=== PATIENT | male | born 1975 | race African-American/Black ===

== ENCOUNTER 2018-07-01 14:09 | Emergency (ER) | payer SELFPAY ==
[2018-07-01 14:44] VITALS: BP 99/64; PULSE 68; TEMP 98.6; BMI 22.8
--- NOTE | 2018-07-01 15:36 | PDOC ---
History of Present Illness - General Chief Complaint: Wound Stated Complaint: LT SIDE BOIL ON THE FACE Time Seen by Provider: 07/01/18 15:28 - History of Present Illness Initial Comments: 07/01/18 15:33 43-year-old male without comorbidities presents for evaluation of left-sided facial swelling times one month. He has no systemic symptoms. Past History - Past Medical History Allergies/Adverse Reactions: Allergies Allergy/AdvReac Type Severity Reaction Status Date / Time No Known Allergies Allergy Verified 07/01/18 14:41 Home Medications: Ambulatory Orders Cephalexin [Keflex] 500 mg PO QID #40 capsule 07/01/18 Sulfamethoxazole/Trimethoprim [Bactrim Ds -] 1 tab PO BID #14 tablet 07/01/18 COPD: No - Suicide/Smoking/Psychosocial Hx Smoking History: Unknown if ever smoked Review of Systems - Review of Systems Constitutional: No: Chills, Fever, Malaise, Night Sweats Integumentary: Yes: Erythema, Lesions, Lumps *Physical Exam - Vital Signs Last Vital Signs Temp Pulse Resp BP Pulse Ox 98.6 F 68 16 99/64 100 07/01/18 14:43 07/01/18 14:43 07/01/18 14:43 07/01/18 14:43 07/01/18 14:43 - Physical Exam Comments: 07/01/18 15:34 There is an indurated erythemic mildly warm area to the left side of the face just anterior to the angle of the mandible. On the skin overlying it. The mass is tender and firm, dry without drainage Medical Decision Making - Medical Decision Making 07/01/18 15:34 This is a folliculitis. I'll treat him with Bactrim and Keflex and have him follow-up with dermatology. *DC/Admit/Observation/Transfer Diagnosis at time of Disposition: Deep folliculitis - Discharge Dispostion Disposition: HOME Condition at time of disposition: Stable Decision to Admit order: No - Prescriptions Prescriptions: Cephalexin [Keflex] 500 mg PO QID #40 capsule Sulfamethoxazole/Trimethoprim [Bactrim Ds -] 1 tab PO BID #14 tablet - Referrals Referrals: Jacinta Aolnso MD [Staff Physician] - - Patient Instructions Additional Instructions: Warm compresses multiple times a day. Please take the antibiotics as directed. Return to the emergency room for worsening symptoms. Follow-up with dermatology in 1-2 days for further evaluation and treatment options. - Post Discharge Activity
== END 2018-07-01 16:44 | disposition home or self-care (01) ==
LOC: JERFT 14:09
DX: L02.02 Furuncle of face (principal); K12.2 Cellulitis and abscess of mouth
CPT/HCPCS: 99281-25

== ENCOUNTER 2022-05-23 15:03 | Emergency (ER) | payer SELFPAY ==
[2022-05-23 15:15] VITALS: BP 138/88; PULSE 87; RESP 20; TEMP 98.1; BMI 48.8
[2022-05-23] MEDS ORDERED: morphine CARPU-JECT 4 MG/1 ML DISP.SYRIN IVPUSH ONE (16:13)
[2022-05-23] MEDS ORDERED: KETOROLAC TROMETHAMINE 30 MG/1 ML VIAL IM ONE (16:24)
[2022-05-23] MEDS ORDERED: LIDOCAINE HCL 2% JELLY (30 ML/TUBE) TP ONE (16:25)
[2022-05-23] MEDS ORDERED: KETOROLAC TROMETHAMINE 30 MG/1 ML VIAL ONE (16:42)
== END 2022-05-23 18:19 | disposition home or self-care (01) ==
LOC: JER 15:03
PROC: 3E023GC Introduction of Other Therapeutic Substance into Muscle, Percutaneous Approach (ICD-10-PCS; principal; 2022-05-23)
DX: K64.9 Unspecified hemorrhoids (principal)
CPT/HCPCS: 99284-25

== ENCOUNTER 2022-05-26 10:07 | Observation (INO) | payer OTHER ==
[2022-05-26 10:13] VITALS: BMI 22.1
[2022-05-26] MEDS ORDERED: LIDOCAINE 2.5%/PRILOCAINE 2.5% (5 Gram/TUBE) TP ONE ×2 (11:20→11:25)
[2022-05-26] MEDS ORDERED: morphine CARPU-JECT 4 MG/1 ML DISP.SYRIN IVPUSH ONE (12:56)
[2022-05-26] MEDS ORDERED: morphine SULFATE 4 MG/ML VIAL ONE (13:17)
[2022-05-26 13:56] LABS: BASO % 0.5 % (0-2.0); EOS % 2.1 % (0-4.5); HEMATOCRIT 41.9 % (35.4-49); HEMOGLOBIN 13.8 GM/dL (11.7-16.9); LYMPH % 33.4 % (8-40); MCH 29.6 pg (25.7-33.7); MEAN CELL VOLUME 89.5 fl (80-96); MEAN PLT VOLUME 7.8 fl (7.5-11.1); MONO % 15.3 % (3.8-10.2); NEUT % 48.7 % (42.8-82.8); PLATELET COUNT 220 10^3/uL (134-434); RBC 4.68 M/mm3 (4.00-5.60); RDW 13.3 % (11.9-15.9); WHITE BLOOD COUNT 5.6 K/mm3 (4.0-10.0)
[2022-05-26 14:03] LABS: INR 1.06 (0.83-1.09); PROTHROMBIN TIME (PATIENT) 12.3 SEC (9.7-13.0)
[2022-05-26 14:06] LABS: ACTIVATED PTT 32.7 SECONDS (25.2-36.5)
[2022-05-26 14:22] LABS: CALCIUM 9.4 mg/dL (8.5-10.1)
[2022-05-26 14:23] LABS: ALBUMIN 3.9 g/dl (3.4-5.0)
[2022-05-26 14:26] LABS: CREATININE 1.2 mg/dL (0.55-1.3)
[2022-05-26 14:27] LABS: BILIRUBIN,TOTAL 0.5 mg/dL (0.2-1)
[2022-05-26] MEDS ORDERED: KETOROLAC TROMETHAMINE 15 MG/ML VIAL IVPUSH PRN (15:41)
[2022-05-26] MEDS ORDERED: LACTATED RINGERS SOLUTION 1,000 ML IV SCH ×3 (15:45→19:23)
[2022-05-26] MEDS ORDERED: SENNOSIDES 8.6MG TABLET (FP) PO PRN ×2 (15:53→19:23)
[2022-05-26] MEDS ORDERED: DOCUSATE SODIUM 100 MG CAPSULE (FP) PO PRN ×2 (15:53→19:23)
[2022-05-26] MEDS ORDERED: MIDAZOLAM HCL 2 MG/2 ML SINGLE DOSE VIAL ONE ×2 (16:42→18:08)
[2022-05-26] MEDS ORDERED: ONDANSETRON 4 MG/2 ML VIAL IVPUSH PRN ×2 (17:38→19:23)
[2022-05-26] MEDS ORDERED: PROMETHAZINE HCL 25 MG/1 ML VIAL IVPB PRN ×2 (17:38→19:23)
[2022-05-26] MEDS ORDERED: ACETAMINOPHEN 1000 MG/100 ML BAG IVPB ONE ×2 (17:38→19:23)
[2022-05-26] MEDS ORDERED: ceFAZolin SODIUM 1 GM VIAL IVPB ONE (17:40)
[2022-05-26] MEDS ORDERED: BENZOIN/ALOE VERA/STORAX/TOLU 58 ML BOTTLE ONE (17:42)
[2022-05-26] MEDS ORDERED: BUPIVACAINE HCL/PF 0.5% (5MG/ML) 10 ML VIAL ONE (17:43)
[2022-05-26] MEDS ORDERED: BUPIVACAINE HCL/PF 0.5% (5 MG/ML) 30 ML VIAL IJ ONE (18:45)
[2022-05-26] MEDS ORDERED: morphine CARPU-JECT 4 MG/1 ML DISP.SYRIN IVPUSH PRN (19:22)
[2022-05-26] MEDS ORDERED: ACETAMINOPHEN INJECTION 100 ML IVPB ONE (20:01)
[2022-05-26] MEDS ORDERED: GLYCOPYRROLATE 0.2 MG/1 ML VIAL ONE (20:45)
[2022-05-26] MEDS ORDERED: GLYCOPYRROLATE 0.2 MG/1 ML VIAL IVPB ONE (20:57)
[2022-05-26] MEDS ORDERED: GLYCOPYRROLATE 0.2 MG/1 ML VIAL IM PRN (21:27)
[2022-05-26] MEDS ORDERED: ACETAMINOPHEN 325 MG TABLET (FP) PO PRN (22:00)
[2022-05-26] MEDS: morphine SULFATE 4 MG/ML VIAL IVPUSH PRN (22:11)
[2022-05-27] MEDS: KETOROLAC TROMETHAMINE 15 MG/ML VIAL IVPUSH PRN ×2 (00:52→13:50)
[2022-05-27] MEDS: morphine SULFATE 4 MG/ML VIAL IVPUSH PRN ×3 (03:17→23:05)
[2022-05-27] MEDS ORDERED: morphine SULFATE 4 MG/ML VIAL IVPUSH PRN (03:43)
[2022-05-27] MEDS: ACETAMINOPHEN 325 MG TABLET (FP) PO PRN ×2 (05:03→11:18)
[2022-05-27] MEDS ORDERED: HYDROmorphone HCl 2 MG/ML VIAL IVPUSH ONE (05:26)
[2022-05-27 10:12] LABS: HEMATOCRIT 37.1 % (35.4-49); MCH 28.9 pg (25.7-33.7); MCHC 32.3 g/dl (32.0-35.9); MEAN CELL VOLUME 89.3 fl (80-96); MEAN PLT VOLUME 7.8 fl (7.5-11.1); PLATELET COUNT 196 10^3/uL (134-434); RBC 4.16 M/mm3 (4.00-5.60); RDW 13.4 % (11.9-15.9); WHITE BLOOD COUNT 7.5 K/mm3 (4.0-10.0)
[2022-05-27 10:48] LABS: CALCIUM 8.5 mg/dL (8.5-10.1)
[2022-05-27 10:49] LABS: BLOOD UREA NITROGEN 14.4 mg/dL (7-18)
[2022-05-27 10:50] VITALS: RESP 18
[2022-05-27 10:53] LABS: CREATININE 1.1 mg/dL (0.55-1.3)
[2022-05-27] MEDS: LACTATED RINGERS SOLUTION 1,000 ML IV SCH (13:17)
[2022-05-27] MEDS: KETOROLAC TROMETHAMINE 30 MG/1 ML VIAL IVPUSH PRN (20:37)
[2022-05-28] MEDS: LACTATED RINGERS SOLUTION 1,000 ML IV SCH (03:33)
[2022-05-28] MEDS: morphine SULFATE 4 MG/ML VIAL IVPUSH PRN (07:54)
[2022-05-28] MEDS: ENOXAPARIN NA (PORCINE) 40 MG/0.4 ML DISP.SYRIN SQ SCH (09:50)
[2022-05-28 10:19] LABS: BASO % 0.3 % (0-2.0); HEMATOCRIT 35.6 % (35.4-49); HEMOGLOBIN 11.8 GM/dL (11.7-16.9); LYMPH % 13.9 % (8-40); MCH 29.5 pg (25.7-33.7); MCHC 33.1 g/dl (32.0-35.9); MEAN CELL VOLUME 89.2 fl (80-96); MEAN PLT VOLUME 8.3 fl (7.5-11.1); MONO % 13.3 % (3.8-10.2); NEUT % 71.5 % (42.8-82.8); PLATELET COUNT 195 10^3/uL (134-434); RBC 3.99 M/mm3 (4.00-5.60); RDW 13.3 % (11.9-15.9); WHITE BLOOD COUNT 8.4 K/mm3 (4.0-10.0)
[2022-05-28 10:30] LABS: CALCIUM 8.7 mg/dL (8.5-10.1)
[2022-05-28 10:31] LABS: BLOOD UREA NITROGEN 9.7 mg/dL (7-18)
[2022-05-28] MEDS: KETOROLAC TROMETHAMINE 30 MG/1 ML VIAL IVPUSH PRN (11:31)
[2022-05-28] MEDS: SENNOSIDES 8.6MG TABLET (FP) PO SCH ×2 (12:54→21:43)
[2022-05-28] MEDS: DOCUSATE SODIUM 100 MG CAPSULE (FP) PO SCH ×2 (13:59→21:43)
[2022-05-28] MEDS: SIMETHICONE 80 MG TAB.CHEW (FP) PO PRN ×2 (18:00→21:44)
[2022-05-28] MEDS: ACETAMINOPHEN 325 MG TABLET (FP) PO PRN (21:44)
[2022-05-29] MEDS: KETOROLAC TROMETHAMINE 30 MG/1 ML VIAL IVPUSH PRN (03:52)
[2022-05-29] MEDS: DOCUSATE SODIUM 100 MG CAPSULE (FP) PO SCH ×2 (06:12→13:45)
[2022-05-29 09:56] LABS: HEMATOCRIT 38.7 % (35.4-49); HEMOGLOBIN 12.8 GM/dL (11.7-16.9); MCH 29.5 pg (25.7-33.7); MEAN CELL VOLUME 89.4 fl (80-96); MEAN PLT VOLUME 8.2 fl (7.5-11.1); PLATELET COUNT 213 10^3/uL (134-434); RBC 4.33 M/mm3 (4.00-5.60); RDW 13.3 % (11.9-15.9); WHITE BLOOD COUNT 6.1 K/mm3 (4.0-10.0)
[2022-05-29] MEDS ORDERED: POLYETHYLENE GLYCOL (HEALTHYLAX) 3350 17 GM PACKET PO SCH (10:00)
[2022-05-29] MEDS: ENOXAPARIN NA (PORCINE) 40 MG/0.4 ML DISP.SYRIN SQ SCH (10:32)
[2022-05-29] MEDS: SENNOSIDES 8.6MG TABLET (FP) PO SCH (10:33)
[2022-05-29 10:50] VITALS: BP 130/82; PULSE 56; TEMP 97.5
[2022-05-29 11:02] LABS: BLOOD UREA NITROGEN 12.8 mg/dL (7-18); MAGNESIUM 2.1 mg/dL (1.8-2.4)
[2022-05-29 11:04] LABS: CREATININE 1.1 mg/dL (0.55-1.3)
[2022-05-29 11:06] LABS: PHOSPHOROUS 3.2 mg/dL (2.5-4.9)
== END 2022-05-29 18:07 | disposition home or self-care (01) ==
LOC: JERFT 10:07 → JER 10:07 → JERBED 15:00 → J6S 21:53
PROVIDERS: ADMIT Internal Medicine; ATTEND Internal Medicine
PROC: 3E033NZ Introduction of Analgesics, Hypnotics, Sedatives into Peripheral Vein, Percutaneous Approach (ICD-10-PCS; 2022-05-26)
PROC: 3E033NZ Introduction of Analgesics, Hypnotics, Sedatives into Peripheral Vein, Percutaneous Approach (ICD-10-PCS; 2022-05-26)
PROC: 3E023GC Introduction of Other Therapeutic Substance into Muscle, Percutaneous Approach (ICD-10-PCS; 2022-05-26)
PROC: 3E0333Z Introduction of Anti-inflammatory into Peripheral Vein, Percutaneous Approach (ICD-10-PCS; 2022-05-26)
PROC: 3E0337Z Introduction of Electrolytic and Water Balance Substance into Peripheral Vein, Percutaneous Approach (ICD-10-PCS; 2022-05-26)
PROC: 06BY0ZC Excision of Hemorrhoidal Plexus, Open Approach (ICD-10-PCS; principal; 2022-05-26 17:30)
DX: K62.3 Rectal prolapse (principal); K64.5 Perianal venous thrombosis; K62.5 Hemorrhage of anus and rectum; K59.00 Constipation, unspecified
CPT/HCPCS: 36415; 80048; 80053; 83735; 84100; 85025; 85027; 85610; 85730; 86850; 86900; 86901; 88304-TC; 93005; 93010; 94760; 96361; 96372; 96374; 96375; 96376; 99285-25; C9803-CS; G0378; U0003; U0005